=== PATIENT | female | born 1955 | race Caucasian/White ===

== ENCOUNTER 2019-06-09 09:29 | Day surgery (SDC) | payer OTHER ==
[2019-06-08 09:57] LABS: HEMATOCRIT 43.9 % (36.0-48.0); HEMOGLOBIN 15.6 g/dL (12-16); MCH 31.8 pg (26.0-34.0); MCHC 35.5 g/dL (31.0-37.0); MCV 89.4 fL (80.0-100.0); MEAN PLATELET VOLUME 10.1 fL (7.4-10.4); RBC 4.91 10x6/uL (4.00-5.40); RDW 13.3 % (11.5-14.5); WBC 13.3 10x3/uL (4.8-10.8)
[~2019-06-09] VITALS: Ht 162.6 cm; Wt 81.2 kg
[~2019-06-09 09:29] MED LIST: FLUTICASONE PRO16 GM NASAL; HYDROCHLOROTHIA25 MG PO; LAMICTAL25 MG PO; LORTAB 5/500 TA1 TA2 PO; METOPROLOL TART50 MG PO; PROAIR HFA8.5 GM INH; PROVENTIL/2.5 MG/3 M INH; SYSTANE NIGHTT3.5 GM EACH EYE; XANAX1 MG PO
[2019-06-09 11:59] VITALS: BP 155/67; Ht 162.6 cm; Wt 81.2 kg
--- NOTE | 2019-06-09 14:21 | NUR ---
1410-RECD TO ROOM FROM PACU. AROUSES EASILY TO NAME CALL. IV PATENT RESP WITH EASE. 1415-TAKING CLEAR LIQUIDS WITHOUT NAUSEA.
--- NOTE | 2019-06-09 14:49 | NUR ---
1425-FULL LIQUIDS SERVED.
--- NOTE | 2019-06-09 15:11 | NUR ---
1510-D/C HOME VIA WHEELCHAIR.
--- NOTE | 2019-06-21 12:26 | OP ---
PATIENT NAME: JOSE R RECINOS MEDICAL RECORD: [id number] :51 LOCATION:[facility] ADMISSION DATE: SURGEON: LOYD FONTANEZ DATE OF OPERATION: 06/09/2019 SURGEON: Loyd Fontanez DPM PREOPERATIVE DIAGNOSIS: Hallux abductovalgus deformity, right foot. POSTOPERATIVE DIAGNOSIS: Hallux abductovalgus deformity, right foot. PROCEDURE: Jarod bunionectomy, right foot. ANESTHESIA: Local with monitored anesthesia care. HEMOSTASIS: Pneumatic ankle tourniquet inflated to 250 mmHg. ESTIMATED BLOOD LOSS: Minimal. MATERIALS: One 2.5-mm x 18-mm headless [employer] screw ([employer]). INJECTABLES: A 10 cc of 0.5% bupivacaine plain. INDICATIONS: The patient has a long-standing history of pain associated with right bunion deformity. We have discussed the proposed procedure. Risks and benefits were reviewed. Complications were discussed. All questions were answered. She was appropriately consented for the above-mentioned procedure. DESCRIPTION OF PROCEDURE: The patient was brought to the operating room and placed on the operating table in supine position. A time-out was called with Dr. Fontanez, who identified the patient, the surgical site, and the surgery to be performed. Once appropriate anesthesia was obtained, the foot was prepped and draped in the usual aseptic manner. The pneumatic ankle tourniquet was inflated to 250 mmHg around the well-padded right ankle. Attention was directed to the first metatarsophalangeal joint, where a 6-cm linear incision was made just medial to the extensor hallucis longus tendon. This incision was carried deep to soft tissue with care being taken to retract all vital neurovascular structures. The first intermetatarsal space was then entered utilizing blunt and sharp and blunt dissection. The conjoined tendon of the abductor hallucis muscle was identified and sharply transected at the base of the proximal phalanx. Attention was then directed further proximally to the level of the fibular sesamoidal ligament. It was also sharply transected. Next, the periosteum was reflected from the head of the first metatarsal and the base of the proximal phalanx, thus exposing the first metatarsophalangeal joint. Utilizing a sagittal saw, the hypertrophied medial eminence was resected. The sagittal saw was then utilized to create a V-shaped osteotomy in the head of the first metatarsal. This was a V-shaped osteotomy with the apex oriented distally. The capital fragment was translocated laterally and impacted upon the first metatarsal shaft. Next, utilizing furniture mover's recommended technique, one 2.5-mm screw was OPERATIVE REPORT [id number] JOSE R RECINOS placed across the osteotomy. All remaining overhanging bone from the medial aspect of the first metatarsal shaft was resected with the bone saw. Excellent fixation was noted after placement of the screw. The surgical site was then irrigated with copious amounts of normal sterile saline via bulb syringe. The periosteum was reapproximated and coapted using 3-0 Vicryl. The subcutaneous was reapproximated and coapted using 4-0 Vicryl. The skin was reapproximated and coapted using 4-0 nylon. A dressing consisting of Xeroform, 4 x 4's, Kerlix, and Coban was applied to the right foot. The pneumatic ankle tourniquet was deflated and cap refill time was immediate to all digits of right foot. The patient was discharged home with instructions to ice and elevate the right foot. She was dispensed a boot to further help offload the foot. She has my cell phone number for any afterhours difficulties. There were no complications with this procedure. TRANSINT:[id number] Voice Confirmation ID: [id number] DOCUMENT ID: [id number] LOYD FONTANEZ at 1226 CC: [id number] DICTATION DATE: 06/09/19 164 VP ACCOUNT DIRECTOR: 06/09/[address] [facility] 06/09/19 [facility] [address] [place] [address]
== END 2019-06-09 15:10 | disposition home or self-care (01) ==
LOC: D.OPS 09:29 → D.PAN 13:00 → D.OPS 13:00
PROVIDERS: Anesthesiology; ATTEND Podiatrist
DX: M20.11 Hallux valgus (acquired), right foot (principal); Z01.812 Encounter for preprocedural laboratory examination